=== PATIENT | male | born 1950 | race American Indian/Alaskan Native ===

== ENCOUNTER 2016-12-03 06:01 | Day surgery (SDC) | payer MEDICARE ==
[~2016-12-03 06:01] MED LIST: ANCEF/STERILE WATER 2 GM/20 ML 2 GM/20 ML SYRINGE IV NR; LACTATED RINGERS 1,000 ML IV SCH; MARCAINE-EPI 0.5%-1:200,000 INFILTRATI ONE; NACL 0.9% 1000 ML 1,000 ML IV SCH; NACL 0.9% IR ONE; PEPCID IV NR; VERSED IV NR; XYLOCAINE 1% 20 mL INFILTRATI ONE
[2016-12-03] MEDS ORDERED: NACL BACTERIOSTATIC INFILTRATI ONE (06:32)
[2016-12-03] MEDS ORDERED: DIPRIVAN 10 MG/ML IV ONE (07:00)
[2016-12-03] MEDS ORDERED: ZEMURON IV ONE (07:06)
[2016-12-03] MEDS ORDERED: XYLOCAINE MPF 2% ONE (07:06)
[2016-12-03] MEDS ORDERED: SUBLIMAZE ONE (07:06)
[2016-12-03] MEDS ORDERED: XYLOCAINE 1% 20 mL ONE ×2 (07:09→08:40)
[2016-12-03] MEDS ORDERED: MARCAINE-EPI 0.5%-1:200,000 INFILTRATI ONE ×4 (07:09→09:23)
--- NOTE | 2016-12-03 07:13 | Anesthesia Consultation ---
Anesthesia Consult and Med Hx Date of service: 12/03/16 - Airway Anesthetic Teeth Evaluation: Edentulous ROM Head & Neck: Adequate Mental/Hyoid Distance: Adequate Mallampati Class: Class II Intubation Access Assessment: Probably Good - Pulmonary Exam CTA: Yes - Cardiac Exam Cardiac Exam: RRR - Pre-Operative Health Status ASA Pre-Surgery Classification: ASA3 Proposed Anesthetic Plan: General - Pulmonary Hx Smoking: Yes (Former 2ppd, now few cigs a day) COPD: Yes (Pulmonary clearence on chart) - Cardiovascular System Hx Hypertension: Yes (10YRS) Hx Heart Attack/AMI: Yes (chronic systolic heart failure) Hx Angina: No - Other Systems Hx Alcohol Use: Yes (TWICE A MONTH)
--- NOTE | 2016-12-03 07:14 | Anesthesia Day of Surgery ---
Anesthesia Day of Surgery - Day of Surgery Patient Examined: Yes Patient H&P Reviewed: Yes Patient is NPO: Yes Beta Blockers: No Cardiac Clearance: Yes Pulmonary Clearance: Yes
[2016-12-03] MEDS ORDERED: ZOFRAN IV PRN (07:26)
[2016-12-03 07:42] LABS: Basophils % (Auto) 0.7 % (0.0-1.8); Eosinophils % (Auto) 1.8 % (0.0-4.3); Hemoglobin 14.1 gm/dl (11.8-15.2); Mean Corpuscular HGB Conc 34 % (32-34); Mean Corpuscular Hemoglobin 34 pg (28-32); Mean Corpuscular Volume 101 fl (84-94); Platelet Count 182 K/mm3 (140-440); Red Blood Count 4.18 M/mm3 (3.65-5.03); White Blood Count 4.9 K/mm3 (4.5-11.0)
[2016-12-03 07:59] LABS: Blood Urea Nitrogen 9 mg/dL (9-20); Calcium 9.3 mg/dL (8.4-10.2); Carbon Dioxide 26 mmol/L (22-30); Chloride 98.8 mmol/L (98-107); Glucose 102 mg/dL (75-100); Sodium 136 mmol/L (137-145)
[2016-12-03] MEDS ORDERED: ePHEDrine SULFATE ONE (08:00)
[2016-12-03] MEDS ORDERED: ROBINUL ONE (08:25)
[2016-12-03] MEDS ORDERED: ZOFRAN ONE (08:26)
[2016-12-03] MEDS ORDERED: NEOSTIGMINE ONE (08:26)
[2016-12-03] MEDS ORDERED: TORADOL ONE (08:37)
[2016-12-03] MEDS ORDERED: NEO SYNEPHRINE ONE (09:04)
[2016-12-03] MEDS ORDERED: NACL 0.9% 100 ML ONE (09:04)
[2016-12-03] MEDS ORDERED: TORADOL IV ONE (09:25)
[2016-12-03] MEDS ORDERED: NACL 0.9% IR ONE (09:25)
[2016-12-03] MEDS ORDERED: XYLOCAINE 1% 20 mL INFILTRATI ONE (09:25)
[2016-12-03] MEDS: DILAUDID IV PRN ×4 (09:58→10:40)
--- NOTE | 2016-12-03 10:05 | Discharge Summary ---
Providers - Providers Date of discharge: 12/03/16 Attending physician: MARIA GUADALUPE MCGEE Primary care physician: IRVIN NOYOLA Hospitalization Reason for admission: right inguinal hernia and ventral hernia Condition: Good Procedures: lap right inguinal hernia repair and open ventral hernia repair Disposition: DISCHARGED TO HOME OR SELFCARE - Discharge Diagnoses (1) Inguinal hernia Status: Acute Qualifiers: Obstruction and gangrene presence: without obstruction or gangrene Laterality: L Recurrence: R (2) Ventral hernia Status: Acute Qualifiers: Obstruction and gangrene presence: without obstruction or gangrene Qualified Code(s): K43.9 - Ventral hernia without obstruction or gangrene Core Measure Documentation - Palliative Care Palliative Care/ Comfort Measures: Not Applicable - Core Measures Any of the following diagnoses?: none Exam - Constitutional General appearance: Present: no acute distress, well-nourished - EENT Eyes: Present: PERRL, EOM intact ENT: hearing intact, clear oral mucosa, dentition normal - Neck Neck: Present: supple, normal ROM - Respiratory Respiratory effort: normal Respiratory: bilateral: CTA - Cardiovascular Rhythm: regular - Extremities Extremities: no ischemia, pulses intact, pulses symmetrical - Abdominal General gastrointestinal: Present: soft, non-tender Male genitourinary: Present: normal - Rectal Rectal Exam: deferred - Integumentary Integumentary: Present: clear, warm, dry - Musculoskeletal Musculoskeletal: strength equal bilaterally - Psychiatric Psychiatric: appropriate mood/affect, cooperative Plan Activity: up only with assistance, other (no lifting above 10 pounds) Weight Bearing Status: Weight Bear as Tolerated Diet: regular Follow up with: IRVIN NOYOLA MD [Primary Care Provider] - 7 Days
[2016-12-03 10:10] LABS: Anion Gap 16 mmol/L; Potassium 4.5 mmol/L (3.6-5.0)
[2016-12-03] MEDS: MORPHINE IV PRN ×2 (10:20→11:12)
[2016-12-03] MEDS ORDERED: NORCO 7.5/325 PO PRN (11:17)
--- NOTE | 2016-12-03 13:32 | Post Anesthesia Evaluation ---
- Post Anesthesia Evaluation Patient Participated: Yes Airway Patent: Yes Stable Respiratory Function: Yes Nausea/Vomiting: No Temp > 96.8F: Yes Pain Manageable: Yes Adequeate Hydration: Yes Anesthesia Complications: No Block Receding Appropriately: Not Applicable Patient on Ventilator: No
[2016-12-03 14:08] VITALS: BP 142/78
--- NOTE | 2016-12-12 20:11 | Operative Report ---
PREOPERATIVE DIAGNOSES: 1. Abdominal pain. 2. Abdominal pain at the incisional hernia site that had been previously repaired with mesh. Rule out recurrent internal hernia. POSTOPERATIVE DIAGNOSES: Intra-abdominal adhesions to the intra-abdominal mesh with no evidence of small bowel obstruction. PROCEDURE: Diagnostic laparoscopy, laparoscopic lysis of adhesions and excision of intra-abdominal mesh. SURGEON: Alex Parker MD PILOT BOAT DECKHAND: Chas Canseco. ANESTHESIA: General. DESCRIPTION OF PROCEDURE: The patient was placed on the operating table in dorsal supine position and following satisfactory induction of general anesthesia, the abdomen was prepped using Hibiclens solution and draped in a sterile fashion. Using a sharp skin knife skin incision was made at the right upper quadrant and a Veress needle was placed upon insufflation of CO2. After adequate insufflation of CO2 was accomplished inside the abdominal cavity, a 5 mm trocar was placed and a blunt direct vision using the scope and the cannula and entry into abdominal cavity was accomplished without injury. Then, inspection of the intra-abdominal contents only revealed significant adhesive disease at the umbilicus to the area of the previously placed abdominal mesh. Therefore, a second trocar was then placed to access these adhesions and these were subsequently taken down with the LigaSure bipolar device. After the complete adhesiolysis was performed, we then looked around the rest of the abdominal cavity to make sure that there was no other evidence of any other problems. We could not find any. Because the patient was intimately complaining about not being able to sleep on his abdominal side and because he was complaining about that he felt was the mesh problem, we felt compelled to remove the mesh and primarily repair any defect that was left behind. We therefore freed up the mesh using sharp scissor dissection and had the LigaSure device and as the mesh had been fairly incorporated into this region, some of the peritoneum was taken down as well. After the mesh had been completely excised an incision was made at the umbilicus and with the use of a Aida clamp the mesh was removed from the operative field. The fascial defect was closed using a running suture of #1 PDS until the incision was completely closed without any defects noted. The abdominal cavity was then desufflated. The fascial defect was completely inspected and closed and interrupted subdermal sutures were used to close the incision sites and Steri-Strips were applied to the wounds. Sterile dressings were applied to the wounds and the patient tolerated the procedure well, was sent down to recovery room in satisfactory condition. RAMONA: 12/12/2016 17:21 JOB# [id number] AYAZ/SYDNEE
== END 2016-12-03 14:06 | disposition home or self-care (01) ==
LOC: OR 06:01
PROVIDERS: ATTEND Specialist
DX: K66.0 Peritoneal adhesions (postprocedural) (postinfection) (principal); I11.0 Hypertensive heart disease with heart failure; I50.22 Chronic systolic (congestive) heart failure; F17.210 Nicotine dependence, cigarettes, uncomplicated; J44.9 Chronic obstructive pulmonary disease, unspecified; Z98.890 Other specified postprocedural states; Z79.899 Other long term (current) drug therapy; Z72.89 Other problems related to lifestyle; Z82.49 Family history of ischemic heart disease and other diseases of the circulatory system
CPT/HCPCS: 36415; 49329; 80048; 85025; C1726; C1781; J0690; J1170; J1885; J2270; J2370; J2405; J2704; J2710; J3010; J7030; J2250

== ENCOUNTER 2021-02-19 08:27 | Observation (INO) | payer MEDICARE ==
[2021-02-15 10:09] LABS: Alanine Aminotransferase 18 units/L (7-56); Albumin 4.3 g/dL (3.9-5); Blood Urea Nitrogen 5 mg/dL (9-20); Calcium 9.5 mg/dL (8.4-10.2); Hemolysis Index 5
[2021-02-15 10:13] LABS: BUN/Creatinine Ratio 8
[2021-02-15 10:18] LABS: Hematocrit 41.1 % (35.5-45.6); Hemoglobin 14.2 gm/dl (11.8-15.2); Mean Corpuscular HGB Conc 35 % (32-34); Mean Corpuscular Volume 95 fl (84-94); Platelet Count 178 K/mm3 (140-440); Red Blood Count 4.32 M/mm3 (3.65-5.03)
--- NOTE | 2021-02-15 15:06 | Anesthesia Consultation ---
Anesthesia Consult and Med Hx Date of service: 02/19/21 - Airway Anesthetic Teeth Evaluation: Dentures, Edentulous ROM Head & Neck: Adequate Mental/Hyoid Distance: Adequate Mallampati Class: Class II Intubation Access Assessment: Good - Pre-Operative Health Status ASA Pre-Surgery Classification: ASA3 Proposed Anesthetic Plan: General Nerve Block: TAP - Pulmonary Hx Smoking: Yes (2 PPD- NOW 1/2 PPD) SOB: Yes (SOB) COPD: Yes Hx Sleep Apnea: No (HAKEEM PRE SCREEN HIGH RISK) - Cardiovascular System Hx Hypertension: Yes (X 14 YRS) Hx Heart Attack/AMI: Yes (chronic systolic heart failure (was present on 2017 visit here)) Hx Angina: No - Hematic Hx Anemia: No - Other Systems Hx Alcohol Use: Yes (BEER QD) Hx Substance Use: Yes (OCC. THC) Hx Cancer: Yes (Prostate) - Additional Comments Anesthesia Medical History Comments: No records available at the time of visit. Pt reports stable cardiac status
[~2021-02-19 08:27] MED LIST changes: +ACETAMINOPHEN 325 MG TAB PO SCH; -ANCEF/STERILE WATER 2 GM/20 ML 2 GM/20 ML SYRINGE IV NR; +BACTERIOSTATIC SODIUM CHLORIDE 0.9% 30 ML VIAL INFILTRATI ONE; +CELECOXIB 200 MG CAP PO NR; +MAGNESIUM OXIDE 400 MG TAB PO SCH; -MARCAINE-EPI 0.5%-1:200,000 INFILTRATI ONE; +MIDAZOLAM 2 MG/2 ML INJ IV NR; -NACL 0.9% 1000 ML 1,000 ML IV SCH; -NACL 0.9% IR ONE; -PEPCID IV NR; -VERSED IV NR; -XYLOCAINE 1% 20 mL INFILTRATI ONE; +ceFAZolin/STERILE WATER 2 GM/20 ML SYRINGE IV NR; +fentaNYL 100 MCG/2 ML INJ IV SCH
[2021-02-19] MEDS ORDERED: dexAMETHasone 4 MG/ML VIAL ONE (08:50)
[2021-02-19] MEDS ORDERED: BUPIVACAINE-EPINEPHRINE/PF 0.25%-1:200,000 (30 ML) VIAL INFILTRATI ONE (08:50)
[2021-02-19] MEDS ORDERED: LIDOCAINE (1%) 10 MG/1 ML VIAL 20 ML MDV ONE (08:50)
[2021-02-19] MEDS ORDERED: cloNIDine/PF 1,000 MCG/10 ML VIAL EP ONE (08:51)
--- NOTE | 2021-02-19 09:28 | Anesthesia Day of Surgery ---
Anesthesia Day of Surgery - Day of Surgery Patient Examined: Yes Patient H&P Reviewed: Yes Patient is NPO: Yes
[2021-02-19] MEDS ORDERED: ONDANSETRON 4 MG/2 ML INJ IV PRN ×2 (09:29→13:30)
[2021-02-19] MEDS ORDERED: HYDROmorphone 1 MG/1 ML INJ IV PRN (09:29)
[2021-02-19] MEDS ORDERED: LIDOCAINE MPF (2%) 20 MG/1 ML VIAL 5 ML ONE (10:58)
[2021-02-19] MEDS ORDERED: ROCURONIUM 50 MG/5 ML INJ IV ONE (10:58)
[2021-02-19] MEDS ORDERED: HYDROmorphone 1 MG/1 ML INJ ONE (10:58)
[2021-02-19] MEDS ORDERED: ONDANSETRON 4 MG/2 ML INJ ONE (10:58)
[2021-02-19] MEDS ORDERED: dexAMETHasone 20 MG/5 ML VIAL ONE (10:58)
[2021-02-19] MEDS ORDERED: propofoL 200 MG/20 ML VIAL IV ONE (10:58)
[2021-02-19] MEDS ORDERED: PHENYLEPHRINE/NS 1,000 MCG/10 ML SYRINGE (OR USE) IV ONE ×2 (11:03→12:27)
[2021-02-19] MEDS ORDERED: PHENYLEPHRINE 10 MG/1 ML INJ SDV ONE ×2 (11:03→12:40)
[2021-02-19] MEDS ORDERED: CITRIC ACID-SOD CITRATE 500 ML IV ONE (11:07)
[2021-02-19] MEDS ORDERED: THROMBIN (RECOMBINANT) 5,000 UNIT VIAL TP ONE ×2 (11:07→11:09)
[2021-02-19] MEDS ORDERED: CITRIC ACID-SOD CITRATE SOLN 500 ML IV SOLN IV ONE (11:08)
[2021-02-19] MEDS ORDERED: CALCIUM CHLORIDE 1,000 MG/10 ML SYRINGE IV ONE (11:09)
[2021-02-19] MEDS ORDERED: WATER FOR IRRIG STERILE 1,500 ML BOTTLE IR ONE (11:10)
[2021-02-19] MEDS ORDERED: SODIUM CHLORIDE 0.9% IRRIG SOLN 2000 ML IR ONE (11:10)
[2021-02-19] MEDS ORDERED: LACTATED RINGERS 1,000 ML ONE (12:27)
[2021-02-19] MEDS ORDERED: SODIUM CHLORIDE 0.9% 100 ML ONE ×2 (12:42)
[2021-02-19] MEDS ORDERED: GLYCOPYRROLATE 0.4 MG/2 ML INJ ONE (12:59)
[2021-02-19] MEDS ORDERED: NEOSTIGMINE 10MG/10 ML INJ MDV ONE (12:59)
--- NOTE | 2021-02-19 13:02 | Short Stay Summary ---
Short Stay Documentation Date of service: 02/19/21 - History H&P: obtained from office - Allergies and Medications Current Medications: Allergies lisinopril Allergy (Verified 02/14/21 12:04) Rash Home Medications Medication Instructions Recorded Confirmed Last Taken Type Albuterol Sulfate [Ventolin HFA] 2 puff IH Q4H PRN 11/25/16 02/15/21 02/19/21 06:40 History Aspirin [Adult Low Dose Aspirin EC] 81 mg PO QDAY 11/25/16 02/19/21 2 Weeks Ago History ~02/05/21 AtorvaSTATin [Lipitor] 40 mg PO QDAY 11/25/16 02/15/21 02/18/21 History amLODIPine [Norvasc] 10 mg PO DAILY 11/25/16 02/15/21 02/19/21 06:40 History carvediloL [Coreg] 3.125 mg PO BID 11/25/16 02/15/21 02/19/21 06:40 History Cholecalciferol Vit D3 [Vitamin D3 1,000 unit PO QDAY 02/15/21 02/15/21 02/18/21 History 1,000 UNIT TAB] Fluticasone/Salmeterol [Advair 1 puff IH BID 02/15/21 02/15/21 02/18/21 History Diskus 500-50 mcg] Folic Acid 1 mg PO DAILY 02/15/21 02/15/21 02/18/21 History Losartan/Hydrochlorothiazide 1 each PO DAILY 02/15/21 02/15/21 02/18/21 History [Losartan-Hctz 50-12.5 mg Tab] Multivit-Min/FA/Lycopen/Lutein 1 each PO DAILY 02/15/21 02/15/21 02/18/21 History [Centrum Silver Men Tablet] Potassium Gluconate [Potassium] 600 mg PO DAILY 02/15/21 02/15/21 02/18/21 History Tamsulosin [Flomax] 0.4 mg PO QDAY 02/15/21 02/15/21 02/18/21 History Active Medications Acetaminophen (Acetaminophen 325 Mg Tab) 650 mg PO ONCE JONA Stop: 02/19/21 23:00 Last Admin: 02/19/21 09:00 Dose: 650 mg Documented by: Cefazolin Sodium (Cefazolin/Sterile Water 2 Gm/20 Ml Syringe) 2 gm IV PREOP NR Stop: 02/19/21 23:00 Celecoxib (Celecoxib 200 Mg Cap) 200 mg PO PREOP NR Stop: 02/19/21 23:00 Last Admin: 02/19/21 09:00 Dose: 200 mg Documented by: Fentanyl (Fentanyl 100 Mcg/2 Ml Inj) 100 mcg IV ONCE JONA Stop: 02/19/21 23:00 Last Admin: 02/19/21 09:35 Dose: 100 mcg Documented by: Hydromorphone HCl (Hydromorphone 1 Mg/1 Ml Inj) 0.5 mg IV Q10MIN PRN PRN Reason: Pain , Severe (7-10) Stop: 02/19/21 23:00 Lactated Ringer's (Lactated Ringers) 1,000 mls @ 100 mls/hr IV DIRECT JONA Last Admin: 02/19/21 08:40 Dose: 100 mls/hr Documented by: Magnesium Oxide (Magnesium Oxide 400 Mg Tab) 400 mg PO ONCE JONA Stop: 02/19/21 23:00 Last Admin: 02/19/21 09:00 Dose: 400 mg Documented by: Midazolam HCl (Midazolam 2 Mg/2 Ml Inj) 2 mg IV PREOP NR Stop: 02/19/21 23:59 Last Admin: 02/19/21 09:35 Dose: 2 mg Documented by: Ondansetron HCl (Ondansetron 4 Mg/2 Ml Inj) 4 mg IV ONCE PRN PRN Reason: Nausea And Vomiting Stop: 02/19/21 13:00 - Brief post op/procedure progress note Date of procedure: 02/19/21 Pre-op diagnosis: prostate cancer Post-op diagnosis: other Procedure: robotic prostatectomy, bladdder neck suspenstion, removal bladder stone Anesthesia: GETA Surgeon: ERIC SIMPSON Estimated blood loss: other (200cc) Pathology: list (prostate) Specimen disposition: to lab Condition: stable - Hospital course Hospital course: norco, bactrim, post op info on chart resting well akhil removed home with cowan - Disposition Condition at discharge: Stable Short Stay Discharge Plan Follow up with: YESSY FRAGA MD [Primary Care Provider] - 7 Days
[2021-02-19] MEDS ORDERED: ALBUTEROL 8.5 GM MDI INHALATION IH PRN (13:10)
[2021-02-19] MEDS ORDERED: NALOXONE 0.4 MG/1 ML INJ IV PRN (13:30)
[2021-02-19] MEDS ORDERED: ALBUTEROL 2.5 MG/3 ML NEBU IH PRN (13:30)
[2021-02-19] MEDS ORDERED: METHYLENE BLUE 50 MG/10 ML AMP ONE (13:37)
[2021-02-19] MEDS ORDERED: ACETAMINOPHEN 325 MG TAB PO PRN (14:00)
[2021-02-19] MEDS ORDERED: DEXTROSE 50% IN WATER (25GM) 50 ML SYRINGE IV PRN (14:00)
--- NOTE | 2021-02-19 14:09 | Operative Report ---
DATE OF SURGERY: 02/19/2021 PREOPERATIVE DIAGNOSIS: Prostate cancer. POSTOPERATIVE DIAGNOSES: Prostate cancer, bladder stones. PROCEDURES: Robotic prostatectomy, removal of bladder stone, bladder neck suspension, stem cell implant. SURGEON: Gildardo Rosa MD ANESTHESIA: General. HAT BLOCKING MACHINE OPERATOR: Jessie Lee. ESTIMATED BLOOD LOSS: 200 mL INDICATIONS FOR PROCEDURE: This patient is a 70-year-old gentleman seen in the office for an elevated PSA. He underwent transrectal ultrasound and biopsy of his prostate. He was found to have Hina 7 adenocarcinoma of the prostate. PSA was 17. Bone scan, CT scan was negative; this showed a bladder stone. Cystoscopy was performed. Stone was not visualized well and I elected to remove doing the robotic procedure. DESCRIPTION OF PROCEDURE: The patient was taken to the operative suites, placed in supine position. After adequate general anesthesia, was placed in a modified dorsal lithotomy position. Prepped and draped in a sterile fashion. Andrade catheter was placed on the operative field. A 1 cm supraumbilical incision was made with a Bovie. Towel clips were placed. Anterior traction performed. A drop test with a Veress needle was negative. Opening pressure was 1 mL of water. Insufflation to 15 mL of water was performed without difficulty. 15 cm cephalad to the pubic symphysis was marked. An additional 9 cm lateral and another 9 cm lateral were used for the 8 mm robotic ports on the left side. Right side also was 1 robotic port, a 10 mm helper port and a 5 mm helper port. The patient was placed in exaggerated dorsal lithotomy position. A 0-degree lens was used to place the supraumbilical port under direct vision, the other ports were placed under direct vision as well with no signs of spread and no intraabdominal injury. Attention was then taken to the posterior aspect of the prostate and bladder. Second arch was scored. Seminal vesicles and vas deferens were dissected out. Bowden of the prostate was dissected out. The lateral umbilical ligament was scored. At this point, we realized the patient had a mesh for inguinal incisions. I was able to avoid mesh and a gentle dissection through the scar tissue. Bladder was dropped. Endopelvic fascia was opened bilaterally without difficulty. Dorsal vein complex was controlled with a 60 mm vascular stapler. Anterior bladder neck was transected exposing the Andrade. It was pulled anteriorly and used for traction. Bladder stones could be appreciated. They were removed without difficulty. There were three. Posterior bladder neck was transected. Seminal vesicles, vas deferens were pulled anteriorly. Lateral pedicles were controlled with 60 mm vascular stapler. Posterior to the prostate and the apex was dissected free and then placed in the EndoCatch bag. Copious irrigation was performed. Adequate hemostasis was achieved. Bladder neck reconstruction was performed to allow 18-Z[place]ian Andrade catheter to be placed. The anastomosis was tapered down at the 5 o'clock and 7 o'clock positions using a 2-0 Vicryl in interrupted fashion. Double armed V-Loc stitch was placed in the bladder neck, corresponding aspect of the urethra. A wire and 16-[place] tip catheter was placed without difficulty. The 18-[place]ian catheter was too big. Andrade was advanced, 15 mL sterile water in the balloon. It irrigated well. Anastomotic stitch was cinched down. There was no leak. V-Loc stitch was placed in the posterior aspect of the pubic ramus bilaterally with gentle traction as a bladder neck suspension. Stem cell graft was placed at the 5 o'clock and 7 o'clock positions of the anterior rectum and the area of the neurovascular bundle. Platelet membrane was placed on the anterior aspect of the urethra and platelet rich plasma, platelet poor plasma was injected around the bladder neck to improve continence and erections. Ino-Serrano drain was brought out through the left-sided incision. The robotic cart was undocked. The patient was placed in a supine position. Supraumbilical incision was extended slightly to allow removal of the prostate. Supraumbilical incision was closed with 0 Vicryl in a [id number] fashion. Skin was closed with 2-0 chromic in interrupted fashion. A Ino-Serrano drain was secured with 2-0 silk in the skin. Andrade catheter sideport was tied over and secured with 0 silk in interrupted fashion. Jessie Lee was present throughout the procedure at the bedside to assist. TID: [id number] RECEIPT: [id number] CARISSA/LEEANN
[2021-02-19] MEDS: SODIUM CHLORIDE 0.9% 1000 ML 1,000 ML IV SCH (14:59)
[2021-02-19] MEDS: MORPHINE 4 MG/1 ML INJ IV PRN (14:59)
--- NOTE | 2021-02-19 17:10 | Post Anesthesia Evaluation ---
- Post Anesthesia Evaluation Patient Participated: Yes Airway Patent: Yes Stable Respiratory Function: Yes Nausea/Vomiting: No Temp > 96.8F: Yes Pain Manageable: Yes Adequeate Hydration: Yes Anesthesia Complications: No
[2021-02-19] MEDS: ceFAZolin/NS 1 GM/50 ML 1 GM/50 ML BAG IV SCH (17:26)
[2021-02-19] MEDS: POTASSIUM CHLORIDE ER 10 MEQ TAB PO SCH (21:15)
[2021-02-19] MEDS: HYDROcodone/ACETAMINOPHEN 5-325 MG TAB PO PRN (21:15)
[2021-02-19] MEDS: carvediloL 3.125 MG TAB PO SCH (21:16)
[2021-02-19] MEDS ORDERED: NON-FORMULARY EACH (Fluticasone/Salmeterol [Advair Diskus 500-50 Mcg] 1 EACH Blst.W.Dev) IH SCH (22:00)
[2021-02-19] MEDS ORDERED: carvediloL 25 MG TAB PO SCH (22:00)
[2021-02-19] MEDS ORDERED: ZOLPIDEM 5 MG TAB PO PRN (22:00)
--- NOTE | 2021-02-19 23:28 | Consultation ---
History of Present Illness - Reason for Consult Consult date: 02/19/21 Medical management Requesting physician: ERIC SIMPSON - History of Present Illness S/p robotic prostatectomy. Postop patient doing well. No shortness of breath no chest pain. Lying comfortably. Past History Past Medical History: COPD, hypertension, hyperlipidemia, other (BPH) Past Surgical History: Other (Robotic prostatectomy) Social history: lives with family, full code Family history: hypertension Medications and Allergies Allergies Allergy/AdvReac Type Severity Reaction Status Date / Time lisinopril Allergy Rash Verified 02/14/21 12:04 Home Medications Medication Instructions Recorded Confirmed Last Taken Type Albuterol Sulfate [Ventolin HFA] 2 puff IH Q4H PRN 11/25/16 02/15/21 02/19/21 06:40 History Aspirin [Adult Low Dose Aspirin EC] 81 mg PO QDAY 11/25/16 02/19/21 2 Weeks Ago History ~02/05/21 AtorvaSTATin [Lipitor] 40 mg PO QDAY 11/25/16 02/15/21 02/18/21 History amLODIPine [Norvasc] 10 mg PO DAILY 11/25/16 02/15/21 02/19/21 06:40 History carvediloL [Coreg] 3.125 mg PO BID 11/25/16 02/15/21 02/19/21 06:40 History Cholecalciferol Vit D3 [Vitamin D3 1,000 unit PO QDAY 02/15/21 02/15/21 02/18/21 History 1,000 UNIT TAB] Fluticasone/Salmeterol [Advair 1 puff IH BID 02/15/21 02/15/21 02/18/21 History Diskus 500-50 mcg] Folic Acid 1 mg PO DAILY 02/15/21 02/15/21 02/18/21 History Losartan/Hydrochlorothiazide 1 each PO DAILY 02/15/21 02/15/21 02/18/21 History [Losartan-Hctz 50-12.5 mg Tab] Multivit-Min/FA/Lycopen/Lutein 1 each PO DAILY 02/15/21 02/15/21 02/18/21 History [Centrum Silver Men Tablet] Potassium Gluconate [Potassium] 600 mg PO DAILY 02/15/21 02/15/21 02/18/21 History Tamsulosin [Flomax] 0.4 mg PO QDAY 02/15/21 02/15/21 02/18/21 History Active Meds: Active Medications Acetaminophen (Acetaminophen 325 Mg Tab) 650 mg PO Q4H PRN PRN Reason: Pain, Mild (1-3)/Fever > 100.5 Hydrocodone Bitart/Acetaminophen (Hydrocodone/Acetaminophen 5-325 Mg Tab) 2 each PO Q4H PRN PRN Reason: Pain, Moderate (4-6) Last Admin: 02/19/21 21:15 Dose: 2 each Documented by: Albuterol (Albuterol 2.5 Mg/3 Ml Nebu) 2.5 mg IH Q4HRT PRN PRN Reason: Shortness Of Breath Amlodipine Besylate (Amlodipine 5 Mg Tab) 10 mg PO DAILY [facility] Arformoterol Tartrate (Arformoterol 15 Mcg/2 Ml Nebu) 15 mcg IH Q12HRT JONA Atorvastatin Calcium (Atorvastatin 40 Mg Tab) 40 mg PO QDAY JONA Budesonide (Budesonide 0.5 Mg/2 Ml Nebu) 1 mg IH Q12HRT JONA Carvedilol (Carvedilol 3.125 Mg Tab) 3.125 mg PO BID [facility] Last Admin: 02/19/21 21:16 Dose: Not Given Documented by: Dextrose (Dextrose 50% In Water (25gm) 50 Ml Syringe) 50 ml IV Q30MIN PRN; Protocol PRN Reason: Hypoglycemia Folic Acid (Folic Acid 1 Mg Tab) 1 mg PO DAILY [facility] Hydrochlorothiazide (Hydrochlorothiazide 12.5 Mg Cap) 12.5 mg PO QDAY JONA Lactated Ringer's (Lactated Ringers) 1,000 mls @ 100 mls/hr IV DIRECT JONA Last Admin: 02/19/21 08:40 Dose: 100 mls/hr Documented by: Sodium Chloride (Nacl 0.9% 1000 Ml) 1,000 mls @ 100 mls/hr IV DIRECT JONA Last Admin: 02/19/21 14:59 Dose: 100 mls/hr Documented by: Cefazolin Sodium (Ancef/Ns 1 Gm/50 Ml) 1 gm in 50 mls @ 100 mls/hr IV Q8H JONA; Protocol Stop: 02/20/21 00:29 Last Admin: 02/19/21 17:26 Dose: 100 mls/hr Documented by: Losartan Potassium (Losartan 50 Mg Tab) 50 mg PO QDAY [facility] Midazolam HCl (Midazolam 2 Mg/2 Ml Inj) 2 mg IV PREOP NR Stop: 02/19/21 23:59 Last Admin: 02/19/21 09:35 Dose: 2 mg Documented by: Morphine Sulfate (Morphine 4 Mg/1 Ml Inj) 4 mg IV Q4H PRN PRN Reason: Pain , Severe (7-10) Last Admin: 02/19/21 14:59 Dose: 4 mg Documented by: Naloxone HCl (Naloxone 0.4 Mg/1 Ml Inj) 0.1 mg IV Q2MIN PRN PRN Reason: Res Rate </= 8 or 02 SAT < 92% Ondansetron HCl (Ondansetron 4 Mg/2 Ml Inj) 4 mg IV Q8H PRN PRN Reason: Nausea And Vomiting Potassium Chloride (Potassium Chloride Er 10 Meq Tab) 10 meq PO QDAY [facility] Last Admin: 02/19/21 21:15 Dose: 10 meq Documented by: Zolpidem Tartrate (Zolpidem 5 Mg Tab) 5 mg PO QHS PRN PRN Reason: Sleep Review of Systems All systems: negative Exam - Constitutional Vitals: Temp Pulse Resp BP Pulse Ox 98.7 F 76 18 96/62 92 02/19/21 18:58 02/19/21 18:58 02/19/21 18:58 02/19/21 18:58 02/19/21 18:58 General appearance: Present: no acute distress, well-nourished - EENT Eyes: Present: PERRL ENT: hearing intact, clear oral mucosa - Neck Neck: Present: supple, normal ROM - Respiratory Respiratory effort: normal Respiratory: bilateral: CTA - Cardiovascular Heart rate: 78 Rhythm: regular Heart Sounds: Present: S1 & S2. Absent: rub, click - Extremities Extremities: pulses symmetrical, No edema Peripheral Pulses: within normal limits - Abdominal General gastrointestinal: Present: soft, non-tender, non-distended, normal bowel sounds Male genitourinary: Present: normal - Rectal Rectal Exam: deferred - Integumentary Integumentary: Present: clear, warm, dry - Musculoskeletal Musculoskeletal: gait normal, strength equal bilaterally - Psychiatric Psychiatric: appropriate mood/affect, intact judgment & insight - Neurologic Neurologic: CNII-XII intact, moves all extremities - Allied Health Allied health notes reviewed: nursing, case management Results - Labs CBC & Chem 7: 02/15/21 00:01 02/15/21 00:01 Assessment and Plan - Patient Problems (1) Hypertension Current Visit: Yes Status: Chronic Qualifiers: Hypertension type: primary hypertension Qualified Code(s): I10 - Essential (primary) hypertension Plan to address problem: Continue antihypertensives and adjust medications as necessary (2) Hyperlipidemia Current Visit: Yes Status: Chronic Qualifiers: Hyperlipidemia type: mixed hyperlipidemia Qualified Code(s): E78.2 - Mixed hyperlipidemia Plan to address problem: Continue statins (3) Asthma Current Visit: Yes Status: Inactive Qualifiers: Asthma complication type: unspecified Plan to address problem: Continue bronchodilators as needed (4) BPH (benign prostatic hyperplasia) Current Visit: Yes Status: Chronic Qualifiers: Lower urinary tract symptom presence: symptoms present Plan to address problem: Patient had a robotic prostatectomy No need for Flomax (5) DVT prophylaxis Current Visit: Yes Status: Acute Plan to address problem: On SCDs and GI prophylaxis
[2021-02-20] MEDS: BUDESONIDE 0.5 MG/2 ML NEBU IH SCH ×2 (00:27→08:33)
[2021-02-20] MEDS: ARFORMOTEROL 15 MCG/2 ML NEBU IH SCH ×2 (00:27→08:33)
[2021-02-20] MEDS: ceFAZolin/NS 1 GM/50 ML 1 GM/50 ML BAG IV SCH (00:59)
[2021-02-20] MEDS: SODIUM CHLORIDE 0.9% 1000 ML 1,000 ML IV SCH (00:59)
[2021-02-20] MEDS: HYDROcodone/ACETAMINOPHEN 5-325 MG TAB PO PRN (02:10)
[2021-02-20] MEDS: MORPHINE 4 MG/1 ML INJ IV PRN (07:49)
[2021-02-20] MEDS: POTASSIUM CHLORIDE ER 10 MEQ TAB PO SCH (08:15)
[2021-02-20] MEDS ORDERED: LOSARTAN 50 MG TAB PO SCH (10:00)
[2021-02-20] MEDS ORDERED: NON-FORMULARY EACH (Losartan/Hydrochlorothiazide [Losartan-Hctz 50-12.5 Mg Tab] 1 EACH Tab PO SCH (10:00)
[2021-02-20] MEDS ORDERED: POTASSIUM GLUCONATE 600 MG PO SCH (10:00)
[2021-02-20] MEDS ORDERED: hydroCHLOROthiazide 12.5 MG CAP PO SCH (10:00)
[2021-02-20] MEDS ORDERED: amLODIPine 5 MG TAB PO SCH (10:00)
[2021-02-20] MEDS ORDERED: FOLIC ACID 1 MG TAB PO SCH (10:00)
[2021-02-20] MEDS: carvediloL 3.125 MG TAB PO SCH (11:04)
[2021-02-20 11:05] VITALS: BP 118/76
--- NOTE | 2021-02-20 11:49 | Progress Note ---
Assessment and Plan Assessment and plan: S/p robotic prostatectomy. Postop patient doing well. No shortness of breath no chest pain. Lying comfortably. STABLE FOR DISCHARGE, FOLLOW WITH PCP. (1) Hypertension Current Visit: Yes Status: Chronic Qualifiers: Hypertension type: primary hypertension Qualified Code(s): I10 - Essential (primary) hypertension Plan to address problem: Continue antihypertensives and adjust medications as necessary (2) Hyperlipidemia Current Visit: Yes Status: Chronic Qualifiers: Hyperlipidemia type: mixed hyperlipidemia Qualified Code(s): E78.2 - Mixed hyperlipidemia Plan to address problem: Continue statins (3) Asthma Current Visit: Yes Status: Inactive Qualifiers: Asthma complication type: unspecified Plan to address problem: Continue bronchodilators as needed (4) BPH (benign prostatic hyperplasia) Current Visit: Yes Status: Chronic Qualifiers: Lower urinary tract symptom presence: symptoms present Plan to address problem: Patient had a robotic prostatectomy No need for Flomax (5) Hypokalemia replace (6) DVT prophylaxis Current Visit: Yes Status: Acute Plan to address problem: On SCDs and GI prophylaxis History Interval history: STABLE NO NEW COMPLAINTS. Hospitalist Physical - Physical exam Narrative exam: General appearance: Present: no acute distress, well-nourished - EENT Eyes: Present: PERRL ENT: hearing intact, clear oral mucosa - Neck Neck: Present: supple, normal ROM - Respiratory Respiratory effort: normal Respiratory: bilateral: CTA - Cardiovascular Heart rate: 78 Rhythm: regular Heart Sounds: Present: S1 & S2. Absent: rub, click - Extremities Extremities: pulses symmetrical, No edema Peripheral Pulses: within normal limits - Abdominal General gastrointestinal: Present: soft, non-tender, non-distended, normal bowel sounds Male genitourinary: Present: normal - Rectal Rectal Exam: deferred - Integumentary Integumentary: Present: clear, warm, dry - Musculoskeletal Musculoskeletal: gait normal, strength equal bilaterally - Psychiatric Psychiatric: appropriate mood/affect, intact judgment & insight - Neurologic Neurologic: CNII-XII intact, moves all extremities - Allied Health Allied health notes reviewed: nursing, case management - Constitutional Vitals: Temp Pulse Resp BP Pulse Ox 98.4 F 93 H 18 118/76 97 02/20/21 04:23 02/20/21 11:04 02/20/21 08:47 02/20/21 11:04 02/20/21 08:49 General appearance: Present: no acute distress, well-nourished Results - Labs CBC & Chem 7: 02/15/21 00:01 02/15/21 00:01 Labs: Laboratory Last Values WBC 6.4 K/mm3 (4.5-11.0) 02/15/21 00:01 RBC 4.32 M/mm3 (3.65-5.03) 02/15/21 00:01 Hgb 14.2 gm/dl (11.8-15.2) 02/15/21 00:01 Hct 41.1 % (35.5-45.6) 02/15/21 00:01 MCV 95 fl (84-94) H 02/15/21 00:01 MCH 33 pg (28-32) H 02/15/21 00:01 MCHC 35 % (32-34) H 02/15/21 00:01 RDW 15.0 % (13.2-15.2) 02/15/21 00:01 Plt Count 178 K/mm3 (140-440) 02/15/21 00:01 Sodium 139 mmol/L (137-145) 02/15/21 00:01 Potassium 3.3 mmol/L (3.6-5.0) L 02/15/21 00:01 Chloride 104.8 mmol/L (98-107) 02/15/21 00:01 Carbon Dioxide 25 mmol/L (22-30) 02/15/21 00:01 Anion Gap 13 mmol/L 02/15/21 00:01 BUN 5 mg/dL (9-20) L 02/15/21 00:01 Creatinine 0.6 mg/dL (0.8-1.3) L 02/15/21 00:01 Estimated GFR > 60 ml/min 02/15/21 00:01 BUN/Creatinine Ratio 8 % 02/15/21 00:01 Glucose 110 mg/dL (75-100) H 02/15/21 00:01 Calcium 9.5 mg/dL (8.4-10.2) 02/15/21 00:01 Total Bilirubin 1.30 mg/dL (0.1-1.2) H 02/15/21 00:01 AST 22 units/L (5-40) 02/15/21 00:01 ALT 18 units/L (7-56) 02/15/21 00:01 Alkaline Phosphatase 97 units/L (35-129) 02/15/21 00:01 Total Protein 7.3 g/dL (6.3-8.2) 02/15/21 00:01 Albumin 4.3 g/dL (3.9-5) 02/15/21 00:01 Albumin/Globulin Ratio 1.4 % 02/15/21 00:01 Coronavirus (PCR) Negative (Negative) 02/15/21 09:15 Blood Type A POSITIVE 02/19/21 09:15 Antibody Screen Negative 02/19/21 09:15 Andrade/IV: Voiding Method Indwelling Catheter Active Medications - Current Medications Current Medications: Generic Name Dose Route Start Last Admin Trade Name Freq PRN Reason Stop Dose Admin Acetaminophen 650 mg 02/19/21 14:00 Acetaminophen 325 Mg Tab PO Q4H PRN Pain, Mild (1-3)/Fever > 100.5 Hydrocodone Bitart/Acetaminophen 2 each 02/19/21 13:30 02/20/21 02:10 Hydrocodone/Acetaminophen 5-325 Mg Tab PO 2 each Q4H PRN Administration Pain, Moderate (4-6) Albuterol 2.5 mg 02/19/21 13:30 Albuterol 2.5 Mg/3 Ml Nebu IH Q4HRT PRN Shortness Of Breath Amlodipine Besylate 10 mg 02/20/21 10:00 Amlodipine 5 Mg Tab PO DAILY JONA Arformoterol Tartrate 15 mcg 02/19/21 20:00 02/20/21 08:33 Arformoterol 15 Mcg/2 Ml Nebu IH 15 mcg Q12HRT JONA Administration Atorvastatin Calcium 40 mg 02/20/21 10:00 Atorvastatin 40 Mg Tab PO QDAY JONA Budesonide 1 mg 02/19/21 20:00 02/20/21 08:33 Budesonide 0.5 Mg/2 Ml Nebu IH 1 mg Q12HRT JONA Administration Carvedilol 3.125 mg 02/19/21 22:00 02/20/21 11:04 Carvedilol 3.125 Mg Tab PO 3.125 mg BID JONA Administration Dextrose 50 ml 02/19/21 14:00 Dextrose 50% In Water (25gm) 50 Ml Syringe IV Q30MIN PRN Hypoglycemia Protocol Folic Acid 1 mg 02/20/21 10:00 Folic Acid 1 Mg Tab PO DAILY JONA Hydrochlorothiazide 12.5 mg 02/20/21 10:00 Hydrochlorothiazide 12.5 Mg Cap PO QDAY JONA Lactated Ringer's 1,000 mls @ 100 mls/hr 02/19/21 06:00 02/19/21 08:40 Lactated Ringers IV 100 mls/hr DIRECT JONA Administration Sodium Chloride 1,000 mls @ 100 mls/hr 02/19/21 13:30 02/20/21 00:59 Nacl 0.9% 1000 Ml IV 100 mls/hr DIRECT JONA Administration Losartan Potassium 50 mg 02/20/21 10:00 Losartan 50 Mg Tab PO QDAY JONA Morphine Sulfate 4 mg 02/19/21 13:30 02/20/21 07:49 Morphine 4 Mg/1 Ml Inj IV 4 mg Q4H PRN Administration Pain , Severe (7-10) Naloxone HCl 0.1 mg 02/19/21 13:30 Naloxone 0.4 Mg/1 Ml Inj IV Q2MIN PRN Res Rate </= 8 or 02 SAT < 92% Ondansetron HCl 4 mg 02/19/21 13:30 Ondansetron 4 Mg/2 Ml Inj IV Q8H PRN Nausea And Vomiting Potassium Chloride 10 meq 02/19/21 18:00 02/20/21 08:15 Potassium Chloride Er 10 Meq Tab PO 10 meq QDAY JONA Administration Zolpidem Tartrate 5 mg 02/19/21 22:00 Zolpidem 5 Mg Tab PO QHS PRN Sleep
== END 2021-02-20 11:00 | disposition home health service (06) ==
LOC: OR 08:27 → 3B-SURG 13:06
PROVIDERS: ADMIT Urology; ATTEND Urology
DX: C61 Malignant neoplasm of prostate (principal); Z20.822 Contact with and (suspected) exposure to COVID-19; I10 Essential (primary) hypertension; N21.0 Calculus in bladder; Z79.82 Long term (current) use of aspirin
CPT/HCPCS: 36415; 51050; 55866; 64450; 80053; 85027; 86850; 86900; 86901; 88309; 94640; 96361; 96365; 96366; 96375; 96376; A4217; C1769; G0378; J0690; J0735; J1100; J2250; J2270; J2370; J2405; J2704; J2710; J3010; J7030; J7120; Q4140; Q9968; U0003; 88344; J1170